=== PATIENT | female | born 1965 | race African-American/Black ===

== ENCOUNTER 2017-09-05 16:31 | Observation (INO) ==
[2017-09-05] MEDS ORDERED: ASPIRIN 325 MG TABLET PO STA ×2 (17:17→18:03)
[2017-09-05] MEDS ORDERED: METOPROLOL TARTRATE 25 MG TABLET PO STA (17:17)
[2017-09-05 17:36] LABS: Basophils % 0.5 % (0.0-0.8); Eosinophils # 0.1 10*3/uL (0.0-0.87); Eosinophils % 1.5 % (0.00-10.9); Hematocrit 29.8 VOL% (35.7-47.0); Hemoglobin 8.2 GM/DL (12.0-16.0); Immature Granulocytes % 0.3 %; Immature Granulocytes Absolute 0.02 #; Lymphocytes # 1.5 10*3/uL (1.4-4.0); Lymphocytes % 22.6 % (21.3-54.2); Mean Corpuscular HGB Conc 27.5 GM/DL (32-36); Mean Corpuscular Hemoglobin 20 PG (27-34); Mean Corpuscular Volume 71.3 FL (87-102); Mean Platelet Volume 9.4 FL (9.6-12.0); Monocytes # 0.5 10*3/uL (0.11-0.8); Neutrophils # 4.5 10*3/uL (1.4-7.4); Neutrophils % 68.1 % (38.7-73.9); Platelet Count 598 T/CUMM (130-400); Red Blood Count 4.18 MC/CUMM (3.8-5.5); Red Cell Distribution Width 18.6 % (9.3-17.3); White Blood Count 6.5 T/CUMM (4-12)
[2017-09-05 17:54] LABS: Albumin 3.5 G/DL (3.4-5.0); Bilirubin,Total 0.4 MG/DL (0.2-1.0); Calcium 8.7 MG/DL (8.5-10.1); Osmolality,Calculated 280.1 MOS/KG (273-304); Potassium 3.7 MMOL/L (3.5-5.1); Total Protein 7.7 G/DL (6.4-8.3)
[2017-09-05] MEDS ORDERED: LISINOPRIL 10 MG TABLET PO ONE (18:00)
[2017-09-05] MEDS ORDERED: hydroCHLOROthiazide 25 MG TABLET PO ONE (18:00)
[2017-09-05 18:05] LABS: Apearance,Urine CLOUDY (Clear); Bilirubin,Urine Negative (Negative); Blood, Urine Small mg/dL (Negative); Glucose,Urine (UA) Negative (Negative); Ketones,Urine 5 mg/dL (Negative); Mucus,Urine Occasional /LPF (Occasional); Nitrite,Urine Negative (Negative); Protein,Urine 100 MG/DL; RBC,Urine 8 /HPF (0-4); Squamous Epithelial Cell,Urine Few /HPF (0-10); Urine Color Yellow (Yellow); Urine Urobilinogen < 2.0 EU/DL (0.2-1.0); WBC,Urine 28 /HPF (0-6)
[2017-09-05 18:13] LABS: Anisocytosis 1+; Hypochromasia 1+
[2017-09-05 18:14] LABS: Platelet Estimate Adequate; Target Cells Few
[2017-09-05] MEDS ORDERED: ALUM/MAG/SIMETH/LIDO VISC 1:1 30 ML BOTTLE PO STA (19:39)
[2017-09-05] MEDS ORDERED: ONDANSETRON 4 MG/2 ML VIAL IV PRN (19:40)
[2017-09-05] MEDS ORDERED: ACETAMINOPHEN 325 MG TABLET PO PRN (19:40)
[2017-09-05] MEDS: CARVEDILOL 3.125 MG TABLET PO SCH (22:09)
[2017-09-05] MEDS: ENOXAPARIN 40 MG/0.4 ML SYRINGE SUBCUT SCH (22:09)
[2017-09-05] MEDS: diphenhydrAMINE CAP 25 MG CAPSULE PO PRN (22:09)
[2017-09-05] MEDS: cefTRIAXone 1,000 MG in SYRINGE 1 EACH IV SCH (22:09)
[2017-09-06] MEDS: NITROGLYCERIN 2% OINT 1 INCH/GM PACK TOP SCH ×3 (00:15→13:11)
[2017-09-06 05:12] LABS: % Iron Saturation 5.3 % (18-50); Ferritin 2.6 ng/ml (8-252)
[2017-09-06 05:17] LABS: Calcium 8.4 MG/DL (8.5-10.1); Osmolality,Calculated 279.1 MOS/KG (273-304); Potassium 3.4 MMOL/L (3.5-5.1); Risk Ratio 3.04; Thyroid Stimulating Hormone 2.62 uIU/ml (0.358-3.74); VLDL CHOLESTEROL 11.8 MG/DL
[2017-09-06 05:22] LABS: Folate 5.5 NG/ML (5.4-24.0); Vitamin B12 297 PG/ML (211-911)
[2017-09-06] MEDS ORDERED: POLYETHYLENE GLYCOL POWDER 17 GM PACK PO ONE (06:35)
[2017-09-06 06:59] LABS: Basophils % 0.5 % (0.0-0.8); Eosinophils # 0.1 10*3/uL (0.0-0.87); Eosinophils % 1.3 % (0.00-10.9); Hemoglobin 8.1 GM/DL (12.0-16.0); Immature Granulocytes % 0.3 %; Immature Granulocytes Absolute 0.02 #; Lymphocytes # 1.5 10*3/uL (1.4-4.0); Lymphocytes % 18.2 % (21.3-54.2); Mean Corpuscular HGB Conc 29.3 GM/DL (32-36); Mean Corpuscular Hemoglobin 20 PG (27-34); Mean Corpuscular Volume 66.7 FL (87-102); Mean Platelet Volume 9.8 FL (9.6-12.0); Monocytes # 0.7 10*3/uL (0.11-0.8); Monocytes % 8.5 % (1.7-12.7); Neutrophils # 5.7 10*3/uL (1.4-7.4); Neutrophils % 71.2 % (38.7-73.9); Platelet Count 557 T/CUMM (130-400); Red Blood Count 4.14 MC/CUMM (3.8-5.5); Red Cell Distribution Width 18.6 % (9.3-17.3)
[2017-09-06 07:00] LABS: Hematocrit 27.6 VOL% (35.7-47.0)
[2017-09-06 07:06] LABS: Hypochromasia 2+; Microcytosis 1+
[2017-09-06 07:07] LABS: Platelet Estimate Increased
[2017-09-06] MEDS ORDERED: LISINOPRIL/HCTZ 10-12.5 MG TABLET PO SCH (09:00)
[2017-09-06] MEDS: CARVEDILOL 3.125 MG TABLET PO SCH ×2 (09:30→21:19)
[2017-09-06] MEDS: PANTOPRAZOLE 40 MG TABLET PO SCH (09:30)
[2017-09-06] MEDS: LISINOPRIL 5 MG TABLET PO SCH ×2 (09:30→21:20)
[2017-09-06 10:34] LABS: Sedimentation Rate-Westergren 30 MM/HR (0-20)
[2017-09-06 11:09] LABS: Hemoglobin A1 (Alkaline) 97.5 % (96.5-98.5); Hemoglobin A2 (Alkaline) 2.5 % (1.5-3.5)
[2017-09-06] MEDS: ENOXAPARIN 40 MG/0.4 ML SYRINGE SUBCUT SCH (21:20)
[2017-09-06] MEDS: cefTRIAXone 1,000 MG in SYRINGE 1 EACH IV SCH (21:20)
[2017-09-07] MEDS: diphenhydrAMINE CAP 25 MG CAPSULE PO PRN (05:34)
[2017-09-07 05:50] LABS: % Iron Saturation 5.8 % (18-50); Ferritin 2.9 ng/ml (8-252)
[2017-09-07] MEDS ORDERED: REGADENOSON 0.4 MG/5 ML SYRINGE IV ONE (08:42)
[2017-09-07] MEDS: CARVEDILOL 3.125 MG TABLET PO SCH ×2 (09:00→21:06)
[2017-09-07] MEDS: PANTOPRAZOLE 40 MG TABLET PO SCH (09:00)
[2017-09-07] MEDS: LISINOPRIL 5 MG TABLET PO SCH ×2 (09:00→21:07)
[2017-09-07] MEDS ORDERED: POTASSIUM CHLORIDE RIDER 10 MEQ in PREMIX 1 EACH IV PRN (14:01)
[2017-09-07] MEDS ORDERED: diphenhydrAMINE CAP 25 MG CAPSULE PO ONE (14:01)
[2017-09-07] MEDS ORDERED: ASPIRIN 325 MG TABLET PO ONE (14:01)
[2017-09-07] MEDS ORDERED: MAGNESIUM SULF RIDER 2 GM in PREMIX 1 EACH IV PRN (14:01)
[2017-09-07] MEDS ORDERED: DIAZEPAM 5 MG TABLET PO ONE (14:01)
[2017-09-07] MEDS ORDERED: LIDOCAINE 1% 20 ML VIAL ONE (14:39)
[2017-09-07] MEDS ORDERED: fentaNYL 100 MCG/2 ML VIAL ONE (14:39)
[2017-09-07] MEDS ORDERED: MIDAZOLAM 2 MG/2 ML VIAL ONE (14:39)
[2017-09-07] MEDS ORDERED: VERAPAMIL 5 MG/2 ML VIAL ONE (14:40)
[2017-09-07] MEDS ORDERED: NITROGLYCERIN DRIP 50 MG/250 ML BOTTLE IV ONE (14:40)
[2017-09-07] MEDS: SODIUM CHLORIDE 0.9% 1,000 ML IV SCH ×2 (15:57→23:15)
[2017-09-07] MEDS: cefTRIAXone 1,000 MG in SYRINGE 1 EACH IV SCH (21:07)
[2017-09-08] MEDS ORDERED: CIPROFLOXACIN 500 MG TABLET PO SCH (09:00)
[2017-09-08] MEDS: SODIUM CHLORIDE 0.9% 1,000 ML IV SCH (09:17)
[2017-09-08] MEDS: PANTOPRAZOLE 40 MG TABLET PO SCH (09:19)
[2017-09-08] MEDS: CARVEDILOL 3.125 MG TABLET PO SCH (09:19)
[2017-09-08] MEDS: LISINOPRIL 5 MG TABLET PO SCH (09:19)
[2017-09-08 11:13] VITALS: BP 113/82
== END 2017-09-08 11:40 | disposition home or self-care (01) ==
LOC: N.EDINP 16:31 → N.ED 16:31 → N.3E 20:06
PROC: CLCCHCL (ICD-10-PCS; 2017-09-07 14:45)

== ENCOUNTER 2019-04-30 19:00 | Observation (INO) ==
[2019-04-30 20:07] LABS: Basophils % 0.5 % (0.0-0.8); Eosinophils # 0.1 10*3/uL (0.0-0.87); Eosinophils % 2.1 % (0.00-10.9); Hematocrit 36.1 VOL% (35.7-47.0); Hemoglobin 11.1 GM/DL (12.0-16.0); Immature Granulocytes % 0.5 %; Immature Granulocytes Absolute 0.03 #; Lymphocytes # 1.9 10*3/uL (1.4-4.0); Lymphocytes % 30.4 % (21.3-54.2); Mean Corpuscular HGB Conc 30.7 GM/DL (32-36); Mean Corpuscular Volume 93.8 FL (87-102); Mean Platelet Volume 10.2 FL (9.6-12.0); Monocytes % 12.2 % (1.7-12.7); Neutrophils % 54.3 % (38.7-73.9); Platelet Count 393 T/CUMM (130-400); Red Blood Count 3.85 MC/CUMM (3.8-5.5); Red Cell Distribution Width 13.8 % (9.3-17.3); White Blood Count 6.3 T/CUMM (4-12)
[2019-04-30] MEDS ORDERED: ASPIRIN 325 MG TABLET PO STA (20:17)
[2019-04-30 20:21] LABS: Albumin 3.5 G/DL (3.4-5.0); Bilirubin,Total 0.5 MG/DL (0.2-1.0); Calcium 8.5 MG/DL (8.5-10.1); Osmolality,Calculated 280.3 MOS/KG (273-304); Total Protein 7.3 G/DL (6.4-8.3)
[2019-04-30 20:22] LABS: Troponin I < 0.015 NG/ML (0.00-0.045)
[2019-04-30] MEDS: NITROGLYCERIN SL 0.4 MG TABLET SL PRN ×3 (20:25→23:44)
[2019-04-30 20:35] LABS: PT Patient Result 10.7 SECS (9.6-12.2)
[2019-04-30] MEDS ORDERED: ONDANSETRON 4 MG/2 ML VIAL IV PRN (22:18)
[2019-04-30] MEDS ORDERED: ACETAMINOPHEN 325 MG TABLET PO PRN (22:18)
[2019-04-30] MEDS ORDERED: DOCUSATE SODIUM 100 MG CAPSULE PO PRN (22:18)
[2019-04-30] MEDS ORDERED: MORPHINE 4 MG/1 ML VIAL IV PRN (22:18)
[2019-04-30] MEDS ORDERED: hydrALAZINE 20 MG/1 ML VIAL IV PRN (22:18)
[2019-04-30] MEDS ORDERED: INFLUENZA VIRUS VACCINE 0.5 ML SYRINGE IM ONE (23:14)
[2019-05-01] MEDS: NITROGLYCERIN SL 0.4 MG TABLET SL PRN (00:35)
[2019-05-01] MEDS ORDERED: ALUM/MAG/SIMETH/LIDO VISC 1:1 30 ML BOTTLE PO ONE (00:58)
[2019-05-01] MEDS ORDERED: ALPRAZolam 0.5 MG TABLET PO PRN (01:22)
[2019-05-01] MEDS ORDERED: HYDROmorphone 2 MG/1 ML VIAL IV PRN (02:15)
[2019-05-01 02:45] LABS: Basophils % 0.4 % (0.0-0.8); Eosinophils # 0.1 10*3/uL (0.0-0.87); Eosinophils % 1.9 % (0.00-10.9); Hematocrit 34.9 VOL% (35.7-47.0); Immature Granulocytes % 0.3 %; Immature Granulocytes Absolute 0.02 #; Lymphocytes # 2.8 10*3/uL (1.4-4.0); Lymphocytes % 37.9 % (21.3-54.2); Mean Corpuscular HGB Conc 31.5 GM/DL (32-36); Mean Corpuscular Volume 94.6 FL (87-102); Mean Platelet Volume 10.4 FL (9.6-12.0); Monocytes % 10.8 % (1.7-12.7); Neutrophils % 48.7 % (38.7-73.9); Platelet Count 413 T/CUMM (130-400); Red Blood Count 3.69 MC/CUMM (3.8-5.5); Red Cell Distribution Width 13.9 % (9.3-17.3); White Blood Count 7.3 T/CUMM (4-12)
[2019-05-01 03:04] LABS: Calcium 8.8 MG/DL (8.5-10.1); Osmolality,Calculated 282.3 MOS/KG (273-304); Risk Ratio 2.31; Thyroid Stimulating Hormone 4.41 uIU/ml (0.358-3.74); VLDL CHOLESTEROL 12.2 MG/DL
[2019-05-01] MEDS ORDERED: ENOXAPARIN 40 MG/0.4 ML SYRINGE SUBCUT SCH (09:00)
[2019-05-01] MEDS ORDERED: METOPROLOL TARTRATE 25 MG TABLET PO SCH (09:00)
[2019-05-01] MEDS ORDERED: KETOROLAC 30 MG/1 ML VIAL IV ONE (11:14)
[2019-05-01 11:58] VITALS: BP 113/70
[2019-05-02] MEDS ORDERED: LEVOTHYROXINE 125 MCG TABLET PO SCH (06:30)
== END 2019-05-01 14:39 | disposition home or self-care (01) ==
LOC: N.ED 19:00 → N.EDINP 19:00 → N.TELES 22:43
PROVIDERS: ADMIT Internal Medicine; ATTEND Internal Medicine

== ENCOUNTER 2021-07-15 16:52 | Observation (INO) ==
[2021-07-15 18:02] LABS: Albumin 3.1 G/DL (3.4-5.0); Bilirubin,Total 0.4 MG/DL (0.20-1.00); Calcium 8.4 MG/DL (8.5-10.1); Osmolality,Calculated 280.4 MOS/KG (273-304); Potassium 3.2 MMOL/L (3.5-5.1); Total Protein 6.9 G/DL (6.4-8.2)
[2021-07-15] MEDS ORDERED: SODIUM CHLORIDE 0.9% 1,000 ML IV STA (18:29)
[2021-07-15] MEDS ORDERED: POTASSIUM CHLORIDE 20 MEQ TABLET PO STA (18:29)
[2021-07-15] MEDS ORDERED: DEXTROSE 10% 250 ML BAG IV PRN ×2 (19:53→19:57)
[2021-07-15] MEDS ORDERED: ONDANSETRON 4 MG/2 ML VIAL IV PRN (19:53)
[2021-07-15] MEDS ORDERED: ACETAMINOPHEN 325 MG TABLET PO PRN (19:53)
[2021-07-15] MEDS ORDERED: GLUCAGON 1 MG VIAL IM PRN (19:53)
[2021-07-15] MEDS ORDERED: NITROGLYCERIN SL 0.4 MG TABLET SL PRN (20:00)
[2021-07-15 20:26] LABS: Basophils % 0.1 % (0.0-0.8); Eosinophils % 0.3 % (0.00-10.9); Hematocrit 30.1 VOL% (35.7-47.0); Hemoglobin 9.5 GM/DL (12.0-16.0); Immature Granulocytes % 0.2 %; Immature Granulocytes Absolute 0.02 #; Lymphocytes # 2.5 10*3/uL (1.4-4.0); Mean Corpuscular HGB Conc 31.6 GM/DL (32-36); Mean Corpuscular Volume 87.2 FL (87-102); Mean Platelet Volume 9.9 FL (9.6-12.0); Monocytes # 0.9 10*3/uL (0.11-0.8); Monocytes % 10.4 % (1.7-12.7); Platelet Count 371 T/CUMM (130-400); Red Blood Count 3.45 MC/CUMM (3.8-5.5); Red Cell Distribution Width 13.8 % (9.3-17.3)
[2021-07-15] MEDS ORDERED: ALUM/MAG/SIMETH/LIDO VISC 1:1 30 ML BOTTLE PO STA (20:50)
[2021-07-15] MEDS: ENOXAPARIN 40 MG/0.4 ML SYRINGE SUBCUT SCH (21:12)
[2021-07-15] MEDS: SODIUM CHLORIDE 0.9% 1,000 ML IV SCH (21:12)
[2021-07-15] MEDS: ASCORBIC ACID 500 MG TABLET PO SCH (21:12)
[2021-07-15 21:30] LABS: Hyaline Casts,Urine 1 /LPF (0-3); Mucus,Urine Occasional /LPF (Occasional); Squamous Epithelial Cell,Urine Occasional /HPF (0-10)
[2021-07-15 21:34] LABS: Bilirubin,Urine Negative (Negative); Blood, Urine Trace mg/dL (Negative); Glucose,Urine (UA) Negative (Negative); Ketones,Urine Negative (Negative); Nitrite,Urine Negative (Negative); Protein,Urine Negative (Negative); Urine Appearance Clear (Clear); Urine Color Yellow (Yellow); Urine Urobilinogen 0.2 eU/dL (<2.0)
[2021-07-15] MEDS: CEFUROXIME 500 MG TABLET PO SCH (22:18)
[2021-07-16 04:12] LABS: Basophils % 0.3 % (0.0-0.8); Eosinophils % 0.6 % (0.00-10.9); Hematocrit 30.7 VOL% (35.7-47.0); Hemoglobin 9.5 GM/DL (12.0-16.0); Immature Granulocytes % 0.3 %; Immature Granulocytes Absolute 0.02 #; Lymphocytes # 2.3 10*3/uL (1.4-4.0); Lymphocytes % 35.1 % (21.3-54.2); Mean Corpuscular HGB Conc 30.9 GM/DL (32-36); Mean Corpuscular Volume 87.7 FL (87-102); Mean Platelet Volume 9.7 FL (9.6-12.0); Monocytes # 0.8 10*3/uL (0.11-0.8); Monocytes % 11.7 % (1.7-12.7); Platelet Count 393 T/CUMM (130-400); Red Cell Distribution Width 13.8 % (9.3-17.3); White Blood Count 6.4 T/CUMM (4-12)
[2021-07-16 04:35] LABS: Bilirubin,Total 0.4 MG/DL (0.20-1.00); Calcium 8.1 MG/DL (8.5-10.1); Osmolality,Calculated 282.1 MOS/KG (273-304); Potassium 3.7 MMOL/L (3.5-5.1); Risk Ratio 2.75; Total Protein 6.6 G/DL (6.4-8.2); VLDL Cholesterol 15.4 MG/DL
[2021-07-16] MEDS: MORPHINE 2 MG/1 ML SYRINGE IV PRN (05:39)
[2021-07-16] MEDS: SODIUM CHLORIDE 0.9% 1,000 ML IV SCH ×3 (05:40→20:59)
[2021-07-16] MEDS: PANTOPRAZOLE 40 MG TABLET PO SCH (06:53)
[2021-07-16 09:31] LABS: Barbiturates Screen,Urine Negative (Negative); Benzodiazepines Screen,Urine Positive (Negative); Cannabinoid Screen,Urine Negative (Negative); Opiate Screen,Urine Negative (Negative); Phencyclidine Screen,Urine Negative (Negative)
[2021-07-16] MEDS: AZITHROMYCIN 250 MG TABLET PO SCH (09:35)
[2021-07-16] MEDS: CEFUROXIME 500 MG TABLET PO SCH ×2 (09:35→20:58)
[2021-07-16] MEDS: ASPIRIN CHEW 81 MG TABLET PO SCH (09:35)
[2021-07-16] MEDS: ASCORBIC ACID 500 MG TABLET PO SCH ×2 (09:35→20:58)
[2021-07-16] MEDS: ZINC SULFATE 220 MG CAPSULE PO SCH (09:35)
[2021-07-16] MEDS ORDERED: LORazepam 2 MG/1 ML VIAL IV ONE (12:46)
[2021-07-16] MEDS: CHOLECALCIFEROL 400 UNIT TABLET PO SCH (14:02)
[2021-07-16] MEDS: ENOXAPARIN 40 MG/0.4 ML SYRINGE SUBCUT SCH (20:58)
[2021-07-17] MEDS: SODIUM CHLORIDE 0.9% 1,000 ML IV SCH ×2 (06:08→14:49)
[2021-07-17] MEDS: PANTOPRAZOLE 40 MG TABLET PO SCH (06:24)
[2021-07-17] MEDS: CHOLECALCIFEROL 400 UNIT TABLET PO SCH (08:50)
[2021-07-17] MEDS: ZINC SULFATE 220 MG CAPSULE PO SCH (09:18)
[2021-07-17] MEDS: ASPIRIN CHEW 81 MG TABLET PO SCH (09:18)
[2021-07-17] MEDS: AZITHROMYCIN 250 MG TABLET PO SCH (09:18)
[2021-07-17] MEDS: ASCORBIC ACID 500 MG TABLET PO SCH ×2 (09:19→22:03)
[2021-07-17] MEDS: CEFUROXIME 500 MG TABLET PO SCH ×2 (09:19→22:03)
[2021-07-17] MEDS ORDERED: KETOROLAC 30 MG/1 ML VIAL IV ONE (09:41)
[2021-07-17] MEDS ORDERED: VANCOMYCIN INJ 1,000 MG in SODIUM CHLORIDE 0.9% 250 ML IV SCH (16:30)
[2021-07-17] MEDS: KETOROLAC 15 MG/1 ML VIAL IV SCH ×2 (17:35→22:04)
[2021-07-17] MEDS: ENOXAPARIN 40 MG/0.4 ML SYRINGE SUBCUT SCH (22:03)
[2021-07-17] MEDS: VANCOMYCIN INJ 2,000 MG in SODIUM CHLORIDE 0.9% 500 ML IV SCH (22:04)
[2021-07-18] MEDS: KETOROLAC 15 MG/1 ML VIAL IV SCH (02:33)
[2021-07-18] MEDS: MORPHINE 2 MG/1 ML SYRINGE IV PRN ×2 (03:11→21:38)
[2021-07-18] MEDS: PANTOPRAZOLE 40 MG TABLET PO SCH (06:02)
[2021-07-18] MEDS: ASPIRIN CHEW 81 MG TABLET PO SCH (09:17)
[2021-07-18] MEDS: CHOLECALCIFEROL 400 UNIT TABLET PO SCH (09:17)
[2021-07-18] MEDS: AZITHROMYCIN 250 MG TABLET PO SCH (09:17)
[2021-07-18] MEDS: ASCORBIC ACID 500 MG TABLET PO SCH ×2 (09:17→21:38)
[2021-07-18] MEDS: VANCOMYCIN INJ 2,000 MG in SODIUM CHLORIDE 0.9% 500 ML IV SCH ×2 (09:17→21:37)
[2021-07-18 09:25] LABS: Basophils % 0.4 % (0.0-0.8); Eosinophils # 0.2 10*3/uL (0.0-0.87); Eosinophils % 4.1 % (0.00-10.9); Hematocrit 29.2 VOL% (35.7-47.0); Hemoglobin 8.8 GM/DL (12.0-16.0); Immature Granulocytes % 0.6 %; Immature Granulocytes Absolute 0.03 #; Lymphocytes # 1.2 10*3/uL (1.4-4.0); Lymphocytes % 22.8 % (21.3-54.2); Mean Corpuscular HGB Conc 30.1 GM/DL (32-36); Mean Corpuscular Volume 89.3 FL (87-102); Mean Platelet Volume 10.3 FL (9.6-12.0); Monocytes # 0.6 10*3/uL (0.11-0.8); Neutrophils % 61.1 % (38.7-73.9); Platelet Count 406 T/CUMM (130-400); Red Blood Count 3.27 MC/CUMM (3.8-5.5); White Blood Count 5.4 T/CUMM (4-12)
[2021-07-18] MEDS: CEFUROXIME 500 MG TABLET PO SCH ×2 (09:50→21:38)
[2021-07-18] MEDS: ZINC SULFATE 220 MG CAPSULE PO SCH (09:50)
[2021-07-18] MEDS: SODIUM CHLORIDE 0.9% 1,000 ML IV SCH ×3 (11:57→20:04)
[2021-07-18] MEDS: ENOXAPARIN 40 MG/0.4 ML SYRINGE SUBCUT SCH (21:38)
[2021-07-19] MEDS: SODIUM CHLORIDE 0.9% 1,000 ML IV SCH ×2 (01:21→04:33)
[2021-07-19] MEDS: VANCOMYCIN INJ 2,000 MG in SODIUM CHLORIDE 0.9% 500 ML IV SCH (02:40)
[2021-07-19] MEDS: PANTOPRAZOLE 40 MG TABLET PO SCH (07:00)
[2021-07-19 08:27] VITALS: BP 130/84
[2021-07-19] MEDS: AZITHROMYCIN 250 MG TABLET PO SCH (09:02)
[2021-07-19] MEDS: ASPIRIN CHEW 81 MG TABLET PO SCH (09:02)
[2021-07-19] MEDS: ASCORBIC ACID 500 MG TABLET PO SCH (09:02)
[2021-07-19] MEDS: ZINC SULFATE 220 MG CAPSULE PO SCH (09:03)
[2021-07-19] MEDS: CEFUROXIME 500 MG TABLET PO SCH (09:03)
[2021-07-19] MEDS: CHOLECALCIFEROL 400 UNIT TABLET PO SCH (09:03)
== END 2021-07-19 10:52 | disposition home or self-care (01) ==
LOC: EDBD → EDUNIT# → N.ED 16:52 → N.EDINP 16:52 → N.TELEN 07-16 12:07
PROVIDERS: ADMIT Internal Medicine; ATTEND Internal Medicine